=== PATIENT | male | born 1950 | race Caucasian/White ===

== ENCOUNTER 2019-04-16 08:05 | Emergency (ER) | payer MEDICARE, BC ==
[2019-04-16] MEDS ORDERED: Ketorolac 60 MG/2 ML SDV IM ONE (08:39)
--- NOTE | 2019-04-16 08:42 | EDM.PDOC ---
ED HPI GENERAL MEDICAL PROBLEM - General Chief Complaint: Lower Extremity Injury/Pain Stated Complaint: LEFT KNEE PAIN Time Seen by Provider: 04/16/19 08:34 Source of Information: Reports: Patient, Family, RN Notes Reviewed History Limitations: Reports: No Limitations - History of Present Illness INITIAL COMMENTS - FREE TEXT/NARRATIVE: 69-year-old gentleman presents emergency department today with complaint of pain in his left knee, he does admit to working on his truck over the last several days has been on his knees quite a bit he has used ibuprofen without much relief, no breaks in the skin no history of gout no history of trauma Left Knee Pain Score (Numeric/FACES): 8 - Related Data Allergies Allergy/AdvReac Type Severity Reaction Status Date / Time No Known Allergies Allergy Verified 04/16/19 08:26 Home Meds: Home Meds Latanoprost 1 drop TOP DAILY 04/16/19 [History] Losartan Potassium [Cozaar] 50 mg PO DAILY 04/16/19 [History] Simvastatin 20 mg PO DAILY 04/16/19 [History] Past Medical History HEENT History: Reports: Glaucoma Cardiovascular History: Reports: High Cholesterol, Hypertension - Past Surgical History GI Surgical History: Reports: Appendectomy Social & Family History - Tobacco Use Smoking Status *Q: Former Smoker Used Tobacco, but Quit: Yes Month/Year Tobacco Last Used: 25 years - Caffeine Use Caffeine Use: Reports: Tea - Recreational Drug Use Recreational Drug Use: No Review of Systems - Review of Systems Review Of Systems: See Below Musculoskeletal: Reports: Joint Pain (Left knee pain) Skin: Reports: Erythema ED EXAM, GENERAL - Physical Exam Exam: See Below Free Text/Narrative:: Examination of the left knee I do appreciate a slight erythema it is slightly warm to the touch small amount of edema is appreciated inferior to the patella no significant tenderness to patella motion no significant joint line tenderness valgus Russ maneuvers are negative anterior drawers also negative Exam Limited By: No Limitations General Appearance: Alert, WD/WN, No Apparent Distress Respiratory/Chest: No Respiratory Distress Course - Vital Signs Last Recorded V/S: Last Vital Signs Temp 95.6 F 04/16/19 08:25 Pulse 72 04/16/19 08:25 Resp 16 04/16/19 08:25 BP 177/89 H 04/16/19 08:25 Pulse Ox 95 04/16/19 08:25 - Orders/Labs/Meds Meds: Medications Discontinued Medications Generic Name Dose Route Start Last Admin Trade Name James PRN Reason Stop Dose Admin Ketorolac Tromethamine 60 mg 04/16/19 08:39 04/16/19 08:44 Toradol IM 04/16/19 08:40 60 mg ONETIME ONE Administration Departure - Departure Time of Disposition: 09:18 Disposition: Home, Self-Care 01 Condition: Fair Clinical Impression: Patellar bursitis of left knee - Discharge Information Referrals: PCP,None [Primary Care Provider] - Forms: ED Department Discharge Additional Instructions: Use the Toradol as needed for pain control, Please followup with your primary care provider in 3-5 days if not better, please call return to the emergency department with worsening of symptoms. - Assessment/Plan Plan: Assessment Acuity = acute Site and laterality = patella bursitis left knee Etiology = secondary to overuse injury with kneeling Manifestations = pain Location of injury = Home Lab values = none Plan I did talk to him about further evaluation including blood work CBC uric acid x- rays he declined at this time he did have good improvement with Toradol provided therefore prescription of Toradol 10 mg 1 tab by mouth 3 times a day when necessary total #20 provided follow-up with his primary care upon returning home if no improvement This note was dictated using [employer] voice recognition software please call with any questions on syntax or grammar.
== END 2019-04-16 09:25 | disposition home or self-care (01) ==
LOC: JP.ED 08:05
DX: M70.42 Prepatellar bursitis, left knee (principal); E78.00 Pure hypercholesterolemia, unspecified; I10 Essential (primary) hypertension; Z87.891 Personal history of nicotine dependence; Z79.899 Other long term (current) drug therapy
CPT/HCPCS: 96372; 99283; J1885